=== PATIENT | male | born 1980 | race African-American/Black ===

== ENCOUNTER 2018-03-17 13:28 | Emergency (ER) | payer MEDICAID ==
[~2018-03-17] VITALS: Ht 195.6 cm; Wt 64.0 kg
[~2018-03-17 13:28] MED LIST: OR220 PO
[2018-03-17] MEDS ORDERED: SODIUM CHLORIDE 0.9% 1,000 ML IV ONE (14:21)
[2018-03-17 14:56] LABS: BASOPHILS % 0.2 % (0.0-2.0); EOSINOPHILS % 0.3 % (0.0-5.0); HEMATOCRIT. 26.9 % (42.0-52.0); HEMOGLOBIN. 9.3 g/dL (14.0-18.0); LYMPHOCYTES % 8.1 % (20.0-50.0); MEAN CORPUSCULAR VOLUME 95.4 fL (80.0-94.0); MEAN PLATELET VOLUME 7.2 fl (7.4-10.4); MONOCYTES % 7.2 % (2.0-8.0); NEUTROPHILS % 84.2 % (40.0-76.0); PLATELET 229 x1000/uL (130-400); RED BLOOD CELL COUNT 2.82 mill/uL (4.7-6.1); RED CELL DISTRIBUTION WIDTH 12.8 % (11.6-14.6)
[2018-03-17 15:02] LABS: CHLORIDE 103 mEq/L (98-107)
[2018-03-17 15:05] LABS: INR 1.1; PARTIAL THROMBOPLASTIN TIME 27.6 sec (23.4-31.0); PROTHROMBIN TIME 11.1 sec (9.4-11.6)
[2018-03-17 15:08] LABS: PHOSPHORUS 3.8 mg/dL (2.5-4.9)
[2018-03-17 15:10] LABS: CREATINE KINASE 55 IU/L (39-308)
[2018-03-17] MEDS ORDERED: POTASSIUM CHLORIDE 20MEQ TABLET SR PO ONE (15:30)
[2018-03-17 16:57] VITALS: BP 131/85
== END 2018-03-17 17:02 | disposition home or self-care (01) ==
LOC: ER 15:49
DX: N28.9 Disorder of kidney and ureter, unspecified (principal); E87.6 Hypokalemia; D64.9 Anemia, unspecified; R03.0 Elevated blood-pressure reading, without diagnosis of hypertension; I45.10 Unspecified right bundle-branch block; R94.31 Abnormal electrocardiogram [ECG] [EKG]; F17.210 Nicotine dependence, cigarettes, uncomplicated; Z98.890 Other specified postprocedural states
CPT/HCPCS: 36415; 80053; 82550; 83735; 84100; 84484; 85025; 85610; 85730; 93005; 99285; J7030

== ENCOUNTER 2019-11-13 15:56 | Inpatient (IN) | payer MEDICAID ==
[~2019-11-13] VITALS: Ht 182.9 cm; Wt 52.7 kg
[~2019-11-13 15:56] MED LIST changes: -OR220 PO; +ZINC1CAP2 PO
[2019-11-13] MEDS ORDERED: ETOMIDATE 2MG/ML 10ML VIAL IV ONE ×2 (15:57→16:15)
[2019-11-13] MEDS ORDERED: VECURONIUM BROMIDE 10 MG/VIAL IV ONE (15:57)
[2019-11-13] MEDS ORDERED: SODIUM CHLORIDE 0.9% 10ML VIAL ONE (15:57)
[2019-11-13] MEDS ORDERED: SUCCINYLCHOLINE CHLORIDE 200MG/10ML IV ONE ×2 (15:57→16:15)
[2019-11-13] MEDS ORDERED: DOPAMINE 400MG/250ML PREMIX 250 ML IV ONE ×2 (16:07→16:15)
[2019-11-13] MEDS ORDERED: NOREPINEPHRINE 4MG/250ML PMX 250 ML IV ONE ×3 (16:14→21:47)
[2019-11-13] MEDS ORDERED: NOREPINEPHRINE 4 MG in DEXT 5% WATER 246 ML IV ONE ×2 (16:15→21:45)
[2019-11-13] MEDS ORDERED: SODIUM CHLORIDE 0.9% 1000ML BAG (SEPSIS BOLUS) IV ONE (16:15)
[2019-11-13] MEDS ORDERED: MIDAZOLAM HCL 50 MG in DEXTROSE 5% WATER 40 ML IV ONE (16:15)
[2019-11-13] MEDS ORDERED: PIPERACILLIN/TAZ 3.375G PREMIX 50 ML IV ONE (16:30)
[2019-11-13] MEDS ORDERED: LEVOFLOXACIN 500MG PREMIX 100 ML IV ONE (16:30)
[2019-11-13 16:56] LABS: BASOPHILS % 0.3 % (0.0-2.0); HEMATOCRIT. 22.9 % (42.0-52.0); HEMOGLOBIN. 7.5 g/dL (14.0-18.0); LYMPHOCYTES % 17.7 % (20.0-50.0); MEAN CORPUSCULAR VOLUME 109.8 fL (80.0-94.0); MONOCYTES % 10.4 % (2.0-8.0); NEUTROPHILS % 71.6 % (40.0-76.0); PLATELET 137 x1000/uL (130-400); RED BLOOD CELL COUNT 2.09 mill/uL (4.7-6.1); RED CELL DISTRIBUTION WIDTH 13.8 % (11.6-14.6)
[2019-11-13 16:57] LABS: CHLORIDE 97 mEq/L (98-107)
[2019-11-13 16:59] LABS: INR 1.2; PROTHROMBIN TIME 13.1 sec (9.6-11.0)
[2019-11-13 17:00] LABS: BG BASE EXCESS -30.8 mmol/L (-2.0-2.0); BG CARBOXYHEMOGLOBIN 0.3 % (0.5-1.5); BG DEOXYHEMOGLOBIN 1.7 % (0.0-5.0); BG FRACTION INSPIRED OXYGEN 100; BG HCO3 ACT 3.6 mmol/L (22.0-26.0); BG METHEMOGLOBIN 0.8 % (0.0-1.5); BG OXYGEN SATURATION 98.3 % (92.0-98.5); BG OXYHEMOGLOBIN 97.2 % (94.0-97.0); BG PCO2 28.8 mmHg (35.0-45.0); BG PO2 232.3 mmHg (75.0-100.0); BG SAMPLE SITE RIGHT RADIAL; BG TIDAL VOLUME(mL) 400 mL; BG TOTAL HEMOGLOBIN 8.6 g/dL (12.0-18.0); BG VENT MODE VENT - A/C; BG VENT RATE 16 set
[2019-11-13 17:02] LABS: ETHANOL BLOOD 101 mg/dL
[2019-11-13] MEDS ORDERED: SODIUM BICARBONATE 150 MEQ in DEXTROSE 5% WATER 1,000 ML IV STA (17:04)
[2019-11-13] MEDS ORDERED: SODIUM BICARBONATE 8.4% 1 MEQ/ML 50ML SYR IV ONE (17:15)
[2019-11-13] MEDS ORDERED: MAGNESIUM 2 G PREMIX 50 ML IV ONE (17:30)
[2019-11-13] MEDS ORDERED: POTASSIUM CHLORIDE INJ 40 MEQ in DEXT 5% WATER 250 ML IV ONE (17:30)
[2019-11-13 17:45] LABS: CLARITY URINE CLEAR (CLEAR); COLOR URINE YELLOW (YELLOW); KETONES URINE 3+ (NEGATIVE); LEUKOCYTE ESTERASE URINE NEGATIVE (NEGATIVE); NITRITE URINE NEGATIVE (NEGATIVE); OCCULT BLOOD URINE 1+ (NEGATIVE); PROTEIN URINE 2+ (NEGATIVE)
[2019-11-13 18:01] LABS: *AMPHETAMINES SCREEN URINE NEGATIVE (NEGATIVE); *BARBITURATES SCREEN URINE NEGATIVE (NEGATIVE); *BENZODIAZEPINES SCREEN URINE NEGATIVE (NEGATIVE); *COCAINE SCREEN URINE NEGATIVE (NEGATIVE); METHADONE URINE SCREEN NEGATIVE (NEGATIVE); OPIATES URINE SCREEN NEGATIVE (NEGATIVE)
[2019-11-13 18:02] LABS: CANNABINOID URINE SCREEN PRESUMTIVE POSITIVE (NEGATIVE); PHENCYCLIDINE URINE SCREEN NEGATIVE (NEGATIVE)
[2019-11-13] MEDS ORDERED: SODIUM CHLORIDE 0.9% 1,000 ML IV SCH (18:13)
[2019-11-13] MEDS ORDERED: MAGNESIUM/ALUMINUM HYDROXIDE/SIMETHICONE 30ML UDC PO PRN (18:15)
[2019-11-13] MEDS ORDERED: NA PHOS,M-B/NA PHOS,DI-BA ENEMA 118ML PR PRN (18:15)
[2019-11-13] MEDS ORDERED: CLONIDINE 0.1MG TABLET PO PRN (18:15)
[2019-11-13] MEDS ORDERED: HYDRALAZINE 20MG/ML VIAL IV PRN (18:15)
[2019-11-13] MEDS ORDERED: DIPHENHYDRAMINE 50MG/ML VIAL IV PRN (18:15)
[2019-11-13] MEDS ORDERED: ONDANSETRON HCL 4MG/2ML INJ IV PRN (18:15)
[2019-11-13] MEDS ORDERED: IPRATROPIUM/ALBUTEROL 0.5-3(2.5)MG/3ML NEB NEB SCH (18:15)
[2019-11-13] MEDS ORDERED: ACETAMINOPHEN 325MG TABLET PO PRN (18:15)
[2019-11-13] MEDS ORDERED: IPRATROPIUM/ALBUTEROL 0.5-3(2.5)MG/3ML NEB NEB PRN (18:15)
[2019-11-13] MEDS ORDERED: DOCUSATE SODIUM 100MG CAPSULE PO PRN (18:15)
[2019-11-13] MEDS ORDERED: DEXTROSE 50% WATER 50ML SYRINGE IV PRN (18:15)
[2019-11-13] MEDS ORDERED: LORAZEPAM 2MG/ML CPJ IV PRN (18:15)
[2019-11-13] MEDS ORDERED: PIPERACILLIN/TAZ 3.375G PREMIX 50 ML IV SCH (18:15)
[2019-11-13] MEDS ORDERED: VANCOMYCIN 1 G PREMIX 200 ML IV SCH (18:41)
[2019-11-13] MEDS: DEXT 5%/0.9% NACL 1,000 ML IV SCH (18:44)
[2019-11-13 18:53] LABS: BG BASE EXCESS -20.9 mmol/L (-2.0-2.0); BG CARBOXYHEMOGLOBIN 0.3 % (0.5-1.5); BG DEOXYHEMOGLOBIN 0.6 % (0.0-5.0); BG FRACTION INSPIRED OXYGEN 100; BG HCO3 ACT 7.9 mmol/L (22.0-26.0); BG METHEMOGLOBIN 0.2 % (0.0-1.5); BG OXYGEN SATURATION 99.4 % (92.0-98.5); BG OXYHEMOGLOBIN 98.9 % (94.0-97.0); BG PCO2 28.7 mmHg (35.0-45.0); BG PH 7.056 (7.350-7.450); BG PO2 594.7 mmHg (75.0-100.0); BG SAMPLE SITE RIGHT RADIAL; BG TIDAL VOLUME(mL) 400 mL; BG TOTAL HEMOGLOBIN 8.6 g/dL (12.0-18.0); BG VENT MODE VENT - A/C; BG VENT RATE 24 set
[2019-11-13] MEDS ORDERED: GUAIFENESIN 200MG/10ML SUGAR FREE UDC PO PRN (19:09)
[2019-11-13] MEDS ORDERED: MORPHINE SULFATE 2 MG/ML CPJ (NOT FOR IM USE) IV PRN (19:15)
[2019-11-13] MEDS ORDERED: HYDROCODONE/ACETAMINOPHEN 10/325MG TABLET PO PRN (19:15)
[2019-11-13 20:57] LABS: HEPATITIS B SURFACE ANTIGEN NEGATIVE
[2019-11-13 21:26] LABS: HEPATITIS A AB IGM NEGATIVE (NEGATIVE)
[2019-11-13] MEDS ORDERED: NOREPINEPHRINE 4MG/250ML PMX 250 ML IV NR (22:48)
[2019-11-13] MEDS ORDERED: INSULIN REGULAR (HUMULIN R) 300UNITS/3ML SUBCUT NR (23:00)
[2019-11-13] MEDS ORDERED: INSULIN GLARGINE UD 100 UNITS/ML SYR SUBCUT NR (23:00)
[2019-11-14] VITALS (96 sets, daily range): BP systolic 65–138; BP diastolic 26–87
[2019-11-14] MEDS ORDERED: DOPAMINE 400MG/250ML PREMIX 250 ML IV SCH (00:09)
[2019-11-14] MEDS ORDERED: SODIUM BICARBONATE 8.4% 1 MEQ/ML 50ML SYR IV SCH (00:10)
[2019-11-14] MEDS ORDERED: MIDAZOLAM HCL 100 MG in DEXT 5% WATER 80 ML IV PRN (00:30)
[2019-11-14] MEDS ORDERED: NOREPINEPHRINE 32 MG in DEXT 5% WATER 468 ML IV PRN ×4 (00:30)
[2019-11-14] MEDS ORDERED: FENTANYL CITRATE/PF 500 MCG in SODIUM CHLORIDE 0.9% 40 ML IV PRN (00:30)
[2019-11-14] MEDS: FENTANYL CITRATE/PF 500 MCG in SODIUM CHLORIDE 0.9% 40 ML IV PRN ×2 (01:10→08:39)
[2019-11-14] MEDS: MIDAZOLAM HCL 100 MG in DEXT 5% WATER 80 ML IV PRN ×2 (01:11→17:54)
[2019-11-14 01:31] LABS: CREATINE KINASE MB FRACTION 2.3 ng/mL (0.5-3.6)
[2019-11-14 01:36] LABS: BG BASE EXCESS -12.4 mmol/L (-2.0-2.0); BG CARBOXYHEMOGLOBIN 0.3 % (0.5-1.5); BG DEOXYHEMOGLOBIN 1.5 % (0.0-5.0); BG FRACTION INSPIRED OXYGEN 40; BG HCO3 ACT 11.9 mmol/L (22.0-26.0); BG METHEMOGLOBIN 0.6 % (0.0-1.5); BG OXYGEN SATURATION 98.5 % (92.0-98.5); BG OXYHEMOGLOBIN 97.6 % (94.0-97.0); BG PCO2 22.5 mmHg (35.0-45.0); BG PH 7.343 (7.350-7.450); BG PO2 199.7 mmHg (75.0-100.0); BG SAMPLE SITE RIGHT RADIAL; BG TIDAL VOLUME(mL) 400 mL; BG TOTAL HEMOGLOBIN 7.6 g/dL (12.0-18.0); BG VENT MODE VENT - A/C; BG VENT RATE 30 set
[2019-11-14] MEDS ORDERED: INSULIN REGULAR (HUMULIN R) 300UNITS/3ML SUBCUT SCH (01:43)
[2019-11-14] MEDS ORDERED: DILTIAZEM HCL 125 MG in DEXT 5% WATER 100 ML IV PRN (02:00)
[2019-11-14] MEDS: PIPERACILLIN/TAZOBACTAM 3.375 G in DEXT 5% WATER 100 ML IV SCH ×3 (02:34→18:14)
[2019-11-14] MEDS: SODIUM BICARBONATE 150 MEQ in DEXTROSE 5% WATER 1,000 ML IV SCH ×2 (03:00→10:33)
[2019-11-14] MEDS: PHENYLEPHRINE 40 MG in DEXT 5% WATER 246 ML IV PRN (03:40)
[2019-11-14] MEDS: VANCOMYCIN 1 G PREMIX 200 ML IV SCH ×3 (03:42→19:16)
[2019-11-14] MEDS: IPRATROPIUM/ALBUTEROL 0.5-3(2.5)MG/3ML NEB NEB SCH ×5 (04:43→20:23)
[2019-11-14 05:43] LABS: MEAN CORPUSCULAR HEMOGLOBIN 36.4 pg (28.0-32.0); MEAN CORPUSCULAR VOLUME 104.1 fL (80.0-94.0); MEAN PLATELET VOLUME 7.1 fl (7.4-10.4); PLATELET 68 x1000/uL (130-400); RED BLOOD CELL COUNT 1.91 mill/uL (4.7-6.1); RED CELL DISTRIBUTION WIDTH 13.9 % (11.6-14.6)
[2019-11-14 05:44] LABS: CHLORIDE 101 mEq/L (98-107)
[2019-11-14 05:55] LABS: CREATINE KINASE MB FRACTION 4.7 ng/mL (0.5-3.6)
[2019-11-14 05:56] LABS: HEMATOCRIT. 19.8 % (42.0-52.0); HEMOGLOBIN. 6.9 g/dL (14.0-18.0)
[2019-11-14 05:57] LABS: CREATINE KINASE 106 IU/L (39-308)
[2019-11-14 06:24] LABS: PHOSPHORUS 0.2 mg/dL (2.5-4.9)
[2019-11-14] MEDS ORDERED: POTASSIUM CHLORIDE INJ 60 MEQ in DEXT 5% WATER 250 ML IV ONE (07:45)
[2019-11-14 07:46] LABS: PLATELET ESTIMATE DECREASED
[2019-11-14 08:43] LABS: BG BASE EXCESS -11.2 mmol/L (-2.0-2.0); BG CARBOXYHEMOGLOBIN 0.4 % (0.5-1.5); BG DEOXYHEMOGLOBIN 1.4 % (0.0-5.0); BG FRACTION INSPIRED OXYGEN 40; BG HCO3 ACT 14.1 mmol/L (22.0-26.0); BG METHEMOGLOBIN 0.4 % (0.0-1.5); BG OXYGEN SATURATION 98.6 % (92.0-98.5); BG OXYHEMOGLOBIN 97.8 % (94.0-97.0); BG PCO2 28.9 mmHg (35.0-45.0); BG PH 7.305 (7.350-7.450); BG PO2 165.7 mmHg (75.0-100.0); BG SAMPLE SITE RIGHT RADIAL; BG TIDAL VOLUME(mL) 400 mL; BG TOTAL HEMOGLOBIN 7.7 g/dL (12.0-18.0); BG VENT MODE VENT - A/C; BG VENT RATE 30 set
[2019-11-14 08:57] LABS: T4 FREE 0.81 ng/dL (0.76-1.46)
[2019-11-14] MEDS ORDERED: POTASSIUM PHOS,M-BASIC-D-BASIC 30 MMOL in DEXT 5% WATER 500 ML IV SCH (09:00)
[2019-11-14] MEDS: KCL 20MEQ/100ML PREMIX 100 ML IV SCH ×4 (09:00→13:43)
[2019-11-14] MEDS ORDERED: MAGNESIUM 2 G PREMIX 50 ML IV SCH ×2 (09:00→21:00)
[2019-11-14] MEDS: MULTIVITAMINS,THER W-MINERALS TABLET PO SCH (10:36)
[2019-11-14] MEDS: THIAMINE HCL 100MG TABLET PO SCH (10:37)
[2019-11-14] MEDS: FOLIC ACID 1MG TABLET PO SCH (10:37)
[2019-11-14] MEDS: DEXT 5%/0.9% NACL 1,000 ML IV SCH ×2 (11:19→21:55)
[2019-11-14] MEDS ORDERED: INFLUENZA VIRUS VACCINE(AFLURIA) 0.5ML SYR IM ONE (12:00)
[2019-11-14 13:06] LABS: D-DIMER 2.45 mg/L FEU (<0.50)
[2019-11-14] MEDS: PANTOPRAZOLE SODIUM 40 MG/VIAL IV SCH (13:29)
[2019-11-14 14:20] LABS: FOLIC ACID (FOLATE) SERUM > 20.00 ng/mL (>5.38); VITAMIN B12 SERUM 790 pg/mL (211-911)
[2019-11-14] MEDS ORDERED: DEXTROSE 50% WATER 50ML SYRINGE IV PRN (16:00)
[2019-11-14 18:29] LABS: CREATINE KINASE MB FRACTION 7.3 ng/mL (0.5-3.6)
[2019-11-14] MEDS: BLOOD SUGAR DIAGNOSTIC STRIP TEST SCH (21:55)
[2019-11-14] MEDS: SODIUM CHLORIDE 0.9% INJ 3ML FLUSH IVF SCH (21:56)
[2019-11-14] MEDS: INSULIN LISPRO 100 UNITS/ML SUBCUT SCH (21:59)
[2019-11-14] MEDS ORDERED: POTASSIUM CHLORIDE INJ 60 MEQ in DEXT 5% WATER 500 ML IV SCH (22:00)
[2019-11-14 22:50] LABS: HEMATOCRIT 32.2 % (42.0-52.0); HEMOGLOBIN 11.4 g/dL (14.0-18.0)
[2019-11-14 23:14] LABS: CREATINE KINASE MB FRACTION 5.9 ng/mL (0.5-3.6)
[2019-11-15] VITALS (93 sets, daily range): BP systolic 76–134; BP diastolic 45–78
[2019-11-15] MEDS: IPRATROPIUM/ALBUTEROL 0.5-3(2.5)MG/3ML NEB NEB SCH ×7 (00:19→23:40)
[2019-11-15] MEDS: PIPERACILLIN/TAZOBACTAM 3.375 G in DEXT 5% WATER 100 ML IV SCH ×3 (01:19→17:17)
[2019-11-15] MEDS: FENTANYL CITRATE/PF 500 MCG in SODIUM CHLORIDE 0.9% 40 ML IV PRN ×2 (01:21→16:14)
[2019-11-15] MEDS: BLOOD SUGAR DIAGNOSTIC STRIP TEST SCH ×4 (03:08→21:15)
[2019-11-15] MEDS: VANCOMYCIN 1 G PREMIX 200 ML IV SCH ×3 (03:08→17:57)
[2019-11-15] MEDS: INSULIN LISPRO 100 UNITS/ML SUBCUT SCH ×4 (03:08→21:15)
[2019-11-15 04:26] LABS: HEMATOCRIT 28.8 % (42.0-52.0); HEMOGLOBIN 10.2 g/dL (14.0-18.0)
[2019-11-15 04:28] LABS: CHLORIDE 101 mEq/L (98-107)
[2019-11-15 04:36] LABS: AMYLASE 89 IU/L (25-115)
[2019-11-15 04:40] LABS: CREATINE KINASE 189 IU/L (39-308)
[2019-11-15 04:44] LABS: CREATINE KINASE MB FRACTION 4.3 ng/mL (0.5-3.6)
[2019-11-15 05:08] LABS: HIV SCREEN 4G Non Reactive (Non Reactive)
[2019-11-15] MEDS: SODIUM CHLORIDE 0.9% INJ 3ML FLUSH IVF SCH ×3 (05:25→21:15)
[2019-11-15] MEDS: PHENYLEPHRINE 40 MG in DEXT 5% WATER 246 ML IV PRN ×3 (06:42→21:00)
[2019-11-15] MEDS: MIDAZOLAM HCL 100 MG in DEXT 5% WATER 80 ML IV PRN (06:53)
[2019-11-15] MEDS ORDERED: POTASSIUM CHLORIDE INJ 40 MEQ in DEXT 5% WATER 250 ML IV NR (08:00)
[2019-11-15 08:23] LABS: BG BASE EXCESS -1.4 mmol/L (-2.0-2.0); BG CARBOXYHEMOGLOBIN 0.2 % (0.5-1.5); BG DEOXYHEMOGLOBIN 1.3 % (0.0-5.0); BG FRACTION INSPIRED OXYGEN 35; BG HCO3 ACT 22.7 mmol/L (22.0-26.0); BG METHEMOGLOBIN 0.3 % (0.0-1.5); BG OXYGEN SATURATION 98.7 % (92.0-98.5); BG OXYHEMOGLOBIN 98.2 % (94.0-97.0); BG PH 7.418 (7.350-7.450); BG SAMPLE SITE RIGHT RADIAL; BG TIDAL VOLUME(mL) 450 mL; BG TOTAL HEMOGLOBIN 10.8 g/dL (12.0-18.0); BG VENT MODE VENT - A/C; BG VENT RATE 30 set
[2019-11-15] MEDS: MULTIVITAMINS,THER W-MINERALS TABLET PO SCH (08:45)
[2019-11-15] MEDS: PANTOPRAZOLE SODIUM 40 MG/VIAL IV SCH (08:45)
[2019-11-15] MEDS: THIAMINE HCL 100MG TABLET PO SCH (08:45)
[2019-11-15] MEDS: FOLIC ACID 1MG TABLET PO SCH (08:45)
[2019-11-15] MEDS: LACTULOSE 20G/30ML UDC PO SCH ×2 (09:00→17:00)
[2019-11-15 09:04] LABS: PHOSPHORUS 0.6 mg/dL (2.5-4.9)
[2019-11-15] MEDS: DEXT 5%/0.9% NACL 1,000 ML IV SCH ×2 (09:57→19:51)
[2019-11-15] MEDS ORDERED: POTASSIUM PHOS,M-BASIC-D-BASIC 20 MMOL in DEXT 5% WATER 243.3333 ML IV NR (11:00)
[2019-11-15] MEDS ORDERED: KCL 20MEQ/100ML PREMIX 100 ML IV NR (12:00)
[2019-11-15 17:07] LABS: HEMATOCRIT 31.3 % (42.0-52.0); HEMOGLOBIN 11.1 g/dL (14.0-18.0)
[2019-11-15 17:17] LABS: PHOSPHORUS 1.9 mg/dL (2.5-4.9)
[2019-11-15] MEDS ORDERED: POTASSIUM CHLORIDE INJ 40 MEQ in DEXT 5% WATER 250 ML IV ONE (19:30)
[2019-11-16] VITALS (99 sets, daily range): BP systolic 71–128; BP diastolic 24–80
[2019-11-16] MEDS: PIPERACILLIN/TAZOBACTAM 3.375 G in DEXT 5% WATER 100 ML IV SCH ×3 (01:08→19:07)
[2019-11-16] MEDS: MIDAZOLAM HCL 100 MG in DEXT 5% WATER 80 ML IV PRN (01:10)
[2019-11-16] MEDS: VANCOMYCIN 1 G PREMIX 200 ML IV SCH (02:11)
[2019-11-16] MEDS: IPRATROPIUM/ALBUTEROL 0.5-3(2.5)MG/3ML NEB NEB SCH ×5 (03:26→20:19)
[2019-11-16] MEDS: DEXT 5%/0.9% NACL 1,000 ML IV SCH (03:43)
[2019-11-16] MEDS: BLOOD SUGAR DIAGNOSTIC STRIP TEST SCH ×4 (04:00→22:27)
[2019-11-16] MEDS: INSULIN LISPRO 100 UNITS/ML SUBCUT SCH ×4 (04:00→22:00)
[2019-11-16] MEDS: SODIUM CHLORIDE 0.9% INJ 3ML FLUSH IVF SCH ×3 (05:08→21:28)
[2019-11-16 07:03] LABS: CHLORIDE 109 mEq/L (98-107)
[2019-11-16] MEDS: PHENYLEPHRINE 40 MG in DEXT 5% WATER 246 ML IV PRN ×3 (07:15→15:50)
[2019-11-16 07:45] LABS: BASOPHILS % 1.2 % (0.0-2.0); EOSINOPHILS % 1.4 % (0.0-5.0); HEMATOCRIT. 26.7 % (42.0-52.0); HEMOGLOBIN. 9.6 g/dL (14.0-18.0); LYMPHOCYTES % 14.8 % (20.0-50.0); MEAN CORPUSCULAR VOLUME 95.2 fL (80.0-94.0); MEAN PLATELET VOLUME 8.2 fl (7.4-10.4); MONOCYTES % 8.5 % (2.0-8.0); NEUTROPHILS % 74.1 % (40.0-76.0); RED BLOOD CELL COUNT 2.81 mill/uL (4.7-6.1); RED CELL DISTRIBUTION WIDTH 17.7 % (11.6-14.6)
[2019-11-16 07:55] LABS: PLATELET 32 x1000/uL (130-400)
[2019-11-16] MEDS: FENTANYL CITRATE/PF 500 MCG in SODIUM CHLORIDE 0.9% 40 ML IV PRN (08:02)
[2019-11-16] MEDS: PANTOPRAZOLE SODIUM 40 MG/VIAL IV SCH (08:13)
[2019-11-16] MEDS: THIAMINE HCL 100MG TABLET PO SCH (08:14)
[2019-11-16] MEDS: MULTIVITAMINS,THER W-MINERALS TABLET PO SCH (08:14)
[2019-11-16] MEDS: FOLIC ACID 1MG TABLET PO SCH (08:14)
[2019-11-16] MEDS: LACTULOSE 20G/30ML UDC PO SCH ×2 (08:17→16:39)
[2019-11-16 09:12] LABS: BG BASE EXCESS -4.8 mmol/L (-2.0-2.0); BG CARBOXYHEMOGLOBIN 0.1 % (0.5-1.5); BG DEOXYHEMOGLOBIN 1.8 % (0.0-5.0); BG FRACTION INSPIRED OXYGEN 35; BG HCO3 ACT 21.1 mmol/L (22.0-26.0); BG METHEMOGLOBIN 0.4 % (0.0-1.5); BG OXYGEN SATURATION 98.2 % (92.0-98.5); BG OXYHEMOGLOBIN 97.7 % (94.0-97.0); BG PCO2 42.4 mmHg (35.0-45.0); BG PH 7.315 (7.350-7.450); BG PO2 187.6 mmHg (75.0-100.0); BG SAMPLE SITE RIGHT RADIAL; BG TIDAL VOLUME(mL) 450 mL; BG TOTAL HEMOGLOBIN 10.1 g/dL (12.0-18.0); BG VENT MODE VENT - A/C; BG VENT RATE 24 set
[2019-11-16] MEDS ORDERED: KCL 20MEQ/100ML PREMIX 100 ML IV NR (10:30)
[2019-11-16 10:37] LABS: PLATELET ESTIMATE MARKEDLY DECREASED
[2019-11-16] MEDS ORDERED: MAGNESIUM 2 G PREMIX 50 ML IV NR (11:00)
[2019-11-16] MEDS: DEXT 5%/0.9% NACL KCL 20MEQ/L 1,000 ML IV SCH ×2 (11:32→23:46)
[2019-11-16] MEDS ORDERED: POTASSIUM PHOS,M-BASIC-D-BASIC 20 MMOL in DEXT 5% WATER 243.3333 ML IV NR (12:00)
[2019-11-17] VITALS (94 sets, daily range): BP systolic 82–145; BP diastolic 32–93
[2019-11-17] MEDS: PHENYLEPHRINE 40 MG in DEXT 5% WATER 246 ML IV PRN ×2 (00:19→09:09)
[2019-11-17] MEDS: PIPERACILLIN/TAZOBACTAM 3.375 G in DEXT 5% WATER 100 ML IV SCH ×3 (01:08→17:20)
[2019-11-17] MEDS: MIDAZOLAM HCL 100 MG in DEXT 5% WATER 80 ML IV PRN (01:09)
[2019-11-17] MEDS: INSULIN LISPRO 100 UNITS/ML SUBCUT SCH ×4 (04:00→23:15)
[2019-11-17] MEDS: BLOOD SUGAR DIAGNOSTIC STRIP TEST SCH ×4 (04:13→23:16)
[2019-11-17 05:00] LABS: BASOPHILS % 0.7 % (0.0-2.0); EOSINOPHILS % 1.6 % (0.0-5.0); HEMATOCRIT. 28.3 % (42.0-52.0); HEMOGLOBIN. 9.9 g/dL (14.0-18.0); LYMPHOCYTES % 10.9 % (20.0-50.0); MEAN CORPUSCULAR HEMOGLOBIN 34.2 pg (28.0-32.0); MEAN CORPUSCULAR VOLUME 97.4 fL (80.0-94.0); MEAN PLATELET VOLUME 7.7 fl (7.4-10.4); MONOCYTES % 7.5 % (2.0-8.0); NEUTROPHILS % 79.3 % (40.0-76.0); PLATELET 81 x1000/uL (130-400); RED BLOOD CELL COUNT 2.91 mill/uL (4.7-6.1); RED CELL DISTRIBUTION WIDTH 18.2 % (11.6-14.6)
[2019-11-17 05:01] LABS: CHLORIDE 109 mEq/L (98-107)
[2019-11-17 05:09] LABS: PHOSPHORUS 2.6 mg/dL (2.5-4.9)
[2019-11-17] MEDS: SODIUM CHLORIDE 0.9% INJ 3ML FLUSH IVF SCH ×3 (05:37→21:14)
[2019-11-17] MEDS ORDERED: PHENYLEPHRINE 80 MG in DEXT 5% WATER 492 ML IV PRN (08:00)
[2019-11-17 08:01] LABS: BG BASE EXCESS -5.7 mmol/L (-2.0-2.0); BG CARBOXYHEMOGLOBIN 0.3 % (0.5-1.5); BG DEOXYHEMOGLOBIN 1.2 % (0.0-5.0); BG FRACTION INSPIRED OXYGEN 35; BG HCO3 ACT 19.2 mmol/L (22.0-26.0); BG METHEMOGLOBIN 0.1 % (0.0-1.5); BG OXYGEN SATURATION 98.8 % (92.0-98.5); BG OXYHEMOGLOBIN 98.4 % (94.0-97.0); BG PCO2 35.4 mmHg (35.0-45.0); BG PH 7.353 (7.350-7.450); BG PO2 173.3 mmHg (75.0-100.0); BG SAMPLE SITE RIGHT RADIAL; BG TIDAL VOLUME(mL) 450 mL; BG TOTAL HEMOGLOBIN 8.9 g/dL (12.0-18.0); BG VENT MODE VENT - A/C; BG VENT RATE 24 set
[2019-11-17] MEDS: LACTULOSE 20G/30ML UDC PO SCH ×2 (08:09→17:20)
[2019-11-17] MEDS: FOLIC ACID 1MG TABLET PO SCH (08:10)
[2019-11-17] MEDS: MULTIVITAMINS,THER W-MINERALS TABLET PO SCH (08:10)
[2019-11-17] MEDS: THIAMINE HCL 100MG TABLET PO SCH (08:10)
[2019-11-17] MEDS: PANTOPRAZOLE SODIUM 40 MG/VIAL IV SCH (08:10)
[2019-11-17] MEDS: FENTANYL CITRATE/PF 500 MCG in SODIUM CHLORIDE 0.9% 40 ML IV PRN (08:44)
[2019-11-17] MEDS: IPRATROPIUM/ALBUTEROL 0.5-3(2.5)MG/3ML NEB NEB SCH ×5 (08:58→23:49)
[2019-11-17 12:02] LABS: BG BASE EXCESS -5.9 mmol/L (-2.0-2.0); BG CARBOXYHEMOGLOBIN 0.3 % (0.5-1.5); BG DEOXYHEMOGLOBIN 1.3 % (0.0-5.0); BG FRACTION INSPIRED OXYGEN 35; BG HCO3 ACT 18.8 mmol/L (22.0-26.0); BG METHEMOGLOBIN 0.2 % (0.0-1.5); BG OXYGEN SATURATION 98.7 % (92.0-98.5); BG OXYHEMOGLOBIN 98.2 % (94.0-97.0); BG PH 7.361 (7.350-7.450); BG PO2 179.2 mmHg (75.0-100.0); BG PRESSURE SUPPORT 8; BG SAMPLE SITE RIGHT RADIAL; BG TOTAL HEMOGLOBIN 9.4 g/dL (12.0-18.0); BG VENT MODE VENT - CPAP
[2019-11-17] MEDS: DEXT 5%/0.9% NACL KCL 20MEQ/L 1,000 ML IV SCH (12:50)
[2019-11-17 15:57] LABS: BG BASE EXCESS -3.1 mmol/L (-2.0-2.0); BG BILEVEL POS AIRWAY PRESSURE 15/5; BG CARBOXYHEMOGLOBIN 0.3 % (0.5-1.5); BG DEOXYHEMOGLOBIN 8.6 % (0.0-5.0); BG FRACTION INSPIRED OXYGEN 50; BG HCO3 ACT 22.5 mmol/L (22.0-26.0); BG METHEMOGLOBIN 0.1 % (0.0-1.5); BG OXYGEN SATURATION 91.4 % (92.0-98.5); BG PH 7.337 (7.350-7.450); BG PO2 63.7 mmHg (75.0-100.0); BG SAMPLE SITE RIGHT RADIAL; BG TOTAL HEMOGLOBIN 9.1 g/dL (12.0-18.0); BG VENT MODE MASK - BIPAP
[2019-11-17] MEDS ORDERED: VANCOMYCIN 1 G PREMIX 200 ML IV SCH (18:00)
[2019-11-18] VITALS (60 sets, daily range): BP systolic 73–160; BP diastolic 38–80
[2019-11-18] MEDS: PIPERACILLIN/TAZOBACTAM 3.375 G in DEXT 5% WATER 100 ML IV SCH ×2 (03:07→09:13)
[2019-11-18] MEDS: IPRATROPIUM/ALBUTEROL 0.5-3(2.5)MG/3ML NEB NEB SCH ×5 (04:25→20:33)
[2019-11-18] MEDS: SODIUM CHLORIDE 0.9% INJ 3ML FLUSH IVF SCH ×3 (05:17→22:00)
[2019-11-18] MEDS: BLOOD SUGAR DIAGNOSTIC STRIP TEST SCH ×4 (05:17→23:37)
[2019-11-18] MEDS: INSULIN LISPRO 100 UNITS/ML SUBCUT SCH ×4 (05:18→23:37)
[2019-11-18] MEDS: DEXT 5%/0.9% NACL KCL 20MEQ/L 1,000 ML IV SCH (06:12)
[2019-11-18 06:44] LABS: HEMATOCRIT. 23.7 % (42.0-52.0); HEMOGLOBIN. 8.2 g/dL (14.0-18.0); MEAN CORPUSCULAR HEMOGLOBIN 33.6 pg (28.0-32.0); MEAN CORPUSCULAR VOLUME 96.9 fL (80.0-94.0); MEAN PLATELET VOLUME 8.2 fl (7.4-10.4); RED BLOOD CELL COUNT 2.44 mill/uL (4.7-6.1); RED CELL DISTRIBUTION WIDTH 18.2 % (11.6-14.6)
[2019-11-18 06:56] LABS: CHLORIDE 108 mEq/L (98-107)
[2019-11-18 07:05] LABS: PHOSPHORUS 2.1 mg/dL (2.5-4.9)
[2019-11-18 08:24] LABS: PLATELET ESTIMATE MARKEDLY DECREASED
[2019-11-18 08:26] LABS: PLATELET 47 x1000/uL (130-400)
[2019-11-18] MEDS: PANTOPRAZOLE SODIUM 40 MG/VIAL IV SCH (09:13)
[2019-11-18] MEDS: LACTULOSE 20G/30ML UDC PO SCH ×2 (09:14→17:27)
[2019-11-18] MEDS: FOLIC ACID 1MG TABLET PO SCH (09:14)
[2019-11-18] MEDS ORDERED: SODIUM CHLORIDE 0.9% 500 ML IV SCH (09:15)
[2019-11-18] MEDS: THIAMINE HCL 100MG TABLET PO SCH (09:17)
[2019-11-18] MEDS: MULTIVITAMINS,THER W-MINERALS TABLET PO SCH (09:17)
[2019-11-18] MEDS ORDERED: MAGNESIUM 2 G PREMIX 50 ML IV SCH (10:00)
[2019-11-18] MEDS ORDERED: SODIUM PHOS,M-BASIC-D-BASIC 20 MM in DEXT 5% WATER 250 ML IV SCH (10:00)
[2019-11-18] MEDS: CEFTRIAXONE 1 G PREMIX 50 ML IV SCH (13:40)
[2019-11-19] VITALS (12 sets, daily range): BP systolic 90–112; BP diastolic 26–67
[2019-11-19] MEDS: IPRATROPIUM/ALBUTEROL 0.5-3(2.5)MG/3ML NEB NEB SCH ×5 (00:06→21:15)
[2019-11-19] MEDS: INSULIN LISPRO 100 UNITS/ML SUBCUT SCH ×3 (06:00→17:15)
[2019-11-19] MEDS: BLOOD SUGAR DIAGNOSTIC STRIP TEST SCH ×3 (06:11→17:15)
[2019-11-19] MEDS: SODIUM CHLORIDE 0.9% INJ 3ML FLUSH IVF SCH ×3 (06:54→22:02)
[2019-11-19] MEDS: LACTULOSE 20G/30ML UDC PO SCH ×2 (09:00→17:00)
[2019-11-19] MEDS: MULTIVITAMINS,THER W-MINERALS TABLET PO SCH (09:02)
[2019-11-19] MEDS: PANTOPRAZOLE SODIUM 40 MG/VIAL IV SCH (09:03)
[2019-11-19] MEDS: THIAMINE HCL 100MG TABLET PO SCH (09:03)
[2019-11-19] MEDS: FOLIC ACID 1MG TABLET PO SCH (09:03)
[2019-11-19 09:58] LABS: HEMATOCRIT. 23.7 % (42.0-52.0); HEMOGLOBIN. 8.3 g/dL (14.0-18.0); MEAN CORPUSCULAR HEMOGLOBIN 33.9 pg (28.0-32.0); MEAN CORPUSCULAR VOLUME 96.6 fL (80.0-94.0); MEAN PLATELET VOLUME 8.8 fl (7.4-10.4); RED BLOOD CELL COUNT 2.45 mill/uL (4.7-6.1)
[2019-11-19 10:48] LABS: PLATELET 49 x1000/uL (130-400)
[2019-11-19 11:14] LABS: CHLORIDE 102 mEq/L (98-107)
[2019-11-19 11:46] LABS: PLATELET ESTIMATE MARKEDLY DECREASED
[2019-11-19 11:52] LABS: CREATINE KINASE 193 IU/L (39-308)
[2019-11-19] MEDS: CEFTRIAXONE 1 G PREMIX 50 ML IV SCH (13:29)
[2019-11-20] VITALS (11 sets, daily range): BP systolic 96–130; BP diastolic 21–82
[2019-11-20] MEDS: BLOOD SUGAR DIAGNOSTIC STRIP TEST SCH ×4 (00:05→17:45)
[2019-11-20] MEDS: IPRATROPIUM/ALBUTEROL 0.5-3(2.5)MG/3ML NEB NEB SCH ×4 (02:01→21:06)
[2019-11-20 05:54] LABS: HEMATOCRIT. 22.7 % (42.0-52.0); MEAN CORPUSCULAR HEMOGLOBIN 33.5 pg (28.0-32.0); MEAN CORPUSCULAR VOLUME 95.7 fL (80.0-94.0); MEAN PLATELET VOLUME 8.6 fl (7.4-10.4); PLATELET 74 x1000/uL (130-400); RED BLOOD CELL COUNT 2.38 mill/uL (4.7-6.1); RED CELL DISTRIBUTION WIDTH 17.4 % (11.6-14.6)
[2019-11-20] MEDS: INSULIN LISPRO 100 UNITS/ML SUBCUT SCH ×4 (06:00→17:45)
[2019-11-20] MEDS: SODIUM CHLORIDE 0.9% INJ 3ML FLUSH IVF SCH ×2 (06:04→14:07)
[2019-11-20 06:19] LABS: CHLORIDE 99 mEq/L (98-107)
[2019-11-20] MEDS: PANTOPRAZOLE SODIUM 40 MG/VIAL IV SCH (08:23)
[2019-11-20] MEDS: MULTIVITAMINS,THER W-MINERALS TABLET PO SCH (08:23)
[2019-11-20] MEDS: LACTULOSE 20G/30ML UDC PO SCH (08:23)
[2019-11-20] MEDS: THIAMINE HCL 100MG TABLET PO SCH (08:24)
[2019-11-20] MEDS: FOLIC ACID 1MG TABLET PO SCH (08:24)
[2019-11-20 11:18] LABS: PLATELET ESTIMATE DECREASED
[2019-11-20] MEDS: CEFTRIAXONE 1 G PREMIX 50 ML IV SCH (14:34)
[2019-11-21] VITALS (12 sets, daily range): BP systolic 86–117; BP diastolic 30–74
[2019-11-21] MEDS: IPRATROPIUM/ALBUTEROL 0.5-3(2.5)MG/3ML NEB NEB SCH ×2 (00:49→04:42)
[2019-11-21] MEDS: BLOOD SUGAR DIAGNOSTIC STRIP TEST SCH ×4 (00:54→17:35)
[2019-11-21] MEDS: INSULIN LISPRO 100 UNITS/ML SUBCUT SCH ×4 (06:00→17:35)
[2019-11-21] MEDS: SODIUM CHLORIDE 0.9% INJ 3ML FLUSH IVF SCH ×3 (06:09→21:27)
[2019-11-21 06:49] LABS: BASOPHILS % 0.4 % (0.0-2.0); EOSINOPHILS % 0.9 % (0.0-5.0); HEMATOCRIT. 24.6 % (42.0-52.0); HEMOGLOBIN. 8.5 g/dL (14.0-18.0); LYMPHOCYTES % 23.9 % (20.0-50.0); MEAN CORPUSCULAR HEMOGLOBIN 33.4 pg (28.0-32.0); MEAN CORPUSCULAR VOLUME 97.2 fL (80.0-94.0); MEAN PLATELET VOLUME 8.4 fl (7.4-10.4); MONOCYTES % 14.5 % (2.0-8.0); NEUTROPHILS % 60.3 % (40.0-76.0); PLATELET 107 x1000/uL (130-400); RED BLOOD CELL COUNT 2.53 mill/uL (4.7-6.1); RED CELL DISTRIBUTION WIDTH 17.6 % (11.6-14.6)
[2019-11-21 07:14] LABS: CHLORIDE 95 mEq/L (98-107)
[2019-11-21] MEDS: FOLIC ACID 1MG TABLET PO SCH (08:15)
[2019-11-21] MEDS: MULTIVITAMINS,THER W-MINERALS TABLET PO SCH (08:15)
[2019-11-21] MEDS: LACTULOSE 20G/30ML UDC PO SCH (08:16)
[2019-11-21] MEDS: PANTOPRAZOLE SODIUM 40 MG/VIAL IV SCH (08:16)
[2019-11-21] MEDS: THIAMINE HCL 100MG TABLET PO SCH (08:16)
[2019-11-21] MEDS: SODIUM CHLORIDE 0.9% 1,000 ML IV SCH (11:50)
[2019-11-21] MEDS: CEFTRIAXONE 1 G PREMIX 50 ML IV SCH (13:00)
[2019-11-21 16:58] LABS: HEMATOCRIT 24.4 % (42.0-52.0); HEMOGLOBIN 8.5 g/dL (14.0-18.0); MEAN CORPUSCULAR HEMOGLOBIN 33.5 pg (28.0-32.0); MEAN CORPUSCULAR VOLUME 96.5 fL (80.0-94.0); PLATELET 130 x1000/uL (130-400); RED BLOOD CELL COUNT 2.53 mill/uL (4.7-6.1); RED CELL DISTRIBUTION WIDTH 17.7 % (11.6-14.6)
[2019-11-21] MEDS ORDERED: LORAZEPAM 2MG/ML CPJ IV PRN (18:15)
[2019-11-21] MEDS: CHLORDIAZEPOXIDE 25MG CAPSULE PO SCH (21:34)
[2019-11-22] VITALS (9 sets, daily range): BP systolic 84–139; BP diastolic 42–77
[2019-11-22] MEDS: BLOOD SUGAR DIAGNOSTIC STRIP TEST SCH ×4 (00:45→16:12)
[2019-11-22] MEDS: SODIUM CHLORIDE 0.9% INJ 3ML FLUSH IVF SCH ×2 (05:03→14:00)
[2019-11-22] MEDS: CHLORDIAZEPOXIDE 25MG CAPSULE PO SCH ×2 (05:03→14:00)
[2019-11-22] MEDS: INSULIN LISPRO 100 UNITS/ML SUBCUT SCH ×4 (06:00→16:12)
[2019-11-22 07:01] LABS: BASOPHILS % 0.3 % (0.0-2.0); EOSINOPHILS % 0.9 % (0.0-5.0); LYMPHOCYTES % 24.4 % (20.0-50.0); MEAN CORPUSCULAR HEMOGLOBIN 33.1 pg (28.0-32.0); MEAN CORPUSCULAR VOLUME 96.4 fL (80.0-94.0); MEAN PLATELET VOLUME 8.7 fl (7.4-10.4); MONOCYTES % 13.6 % (2.0-8.0); NEUTROPHILS % 60.8 % (40.0-76.0); PLATELET 125 x1000/uL (130-400); RED BLOOD CELL COUNT 2.11 mill/uL (4.7-6.1); RED CELL DISTRIBUTION WIDTH 17.8 % (11.6-14.6)
[2019-11-22] MEDS: SODIUM CHLORIDE 0.9% 1,000 ML IV SCH (07:15)
[2019-11-22 07:34] LABS: CHLORIDE 99 mEq/L (98-107)
[2019-11-22 07:55] LABS: HEMATOCRIT. 20.4 % (42.0-52.0)
[2019-11-22] MEDS: LACTULOSE 20G/30ML UDC PO SCH (08:19)
[2019-11-22] MEDS: THIAMINE HCL 100MG TABLET PO SCH (08:44)
[2019-11-22] MEDS: FOLIC ACID 1MG TABLET PO SCH (08:46)
[2019-11-22] MEDS: MULTIVITAMINS,THER W-MINERALS TABLET PO SCH (08:46)
[2019-11-22] MEDS: PANTOPRAZOLE SODIUM 40 MG/VIAL IV SCH (08:47)
[2019-11-22] MEDS ORDERED: PANTOPRAZOLE SODIUM 40 MG/VIAL IV SCH (12:30)
[2019-11-22] MEDS: CEFTRIAXONE 1 G PREMIX 50 ML IV SCH (12:35)
[2019-11-22] MEDS ORDERED: LORAZEPAM 2MG/ML CPJ IV PRN (16:15)
[2019-11-22] MEDS ORDERED: LORAZEPAM 2MG/ML CPJ IM PRN (16:30)
[2019-11-23] MEDS ORDERED: SORBITOL 70% SOLN 30ML PO NR ×2 (16:00→20:00)
[2019-11-24] MEDS ORDERED: NA PHOS,M-B/NA PHOS,DI-BA ENEMA 118ML PR NR (08:00)
== END 2019-11-22 17:10 | disposition home or self-care (01) | DRG 720 ==
LOC: ER 15:56 → CVICU 17:36 → EDBEDREQTM 17:39 → EDBEDREQ 17:39 → ENRESERV 22:51 → 3WST 11-18 16:28
PROVIDERS: ADMIT Internal Medicine; ATTEND Internal Medicine
PROC: 5A1955Z Respiratory Ventilation, Greater than 96 Consecutive Hours (ICD-10-PCS; principal; 2019-11-13)
PROC: 0BH17EZ Insertion of Endotracheal Airway into Trachea, Via Natural or Artificial Opening (ICD-10-PCS; 2019-11-13)
PROC: 30233N1 Transfusion of Nonautologous Red Blood Cells into Peripheral Vein, Percutaneous Approach (ICD-10-PCS; 2019-11-13)
PROC: 30233R1 Transfusion of Nonautologous Platelets into Peripheral Vein, Percutaneous Approach (ICD-10-PCS; 2019-11-13)
PROC: 06HN33Z Insertion of Infusion Device into Left Femoral Vein, Percutaneous Approach (ICD-10-PCS; 2019-11-13)
PROC: B54CZZA Ultrasonography of Left Lower Extremity Veins, Guidance (ICD-10-PCS; 2019-11-13)
PROC: 5A09357 Assistance with Respiratory Ventilation, Less than 24 Consecutive Hours, Continuous Positive Airway Pressure (ICD-10-PCS; 2019-11-17)
DX: A41.9 Sepsis, unspecified organism (principal); J96.00 Acute respiratory failure, unspecified whether with hypoxia or hypercapnia; R65.21 Severe sepsis with septic shock; J69.0 Pneumonitis due to inhalation of food and vomit; G93.41 Metabolic encephalopathy; K66.1 Hemoperitoneum; E43 Unspecified severe protein-calorie malnutrition; E87.2 Acidosis; K85.90 Acute pancreatitis without necrosis or infection, unspecified; E83.39 Other disorders of phosphorus metabolism; D62 Acute posthemorrhagic anemia; E87.6 Hypokalemia; E83.42 Hypomagnesemia; K70.0 Alcoholic fatty liver; D69.6 Thrombocytopenia, unspecified
CPT/HCPCS: 36415; 36600; 71045; 71250; 74176; 76700; 80048; 80053; 80061; 80076; 80202; 80305; 80307; 80320; 80329; 81003; 82088; 82140; 82150; 82270; 82375; 82550; 82553; 82570; 82607; 82728; 82746; 82805; 82962; 83036; 83540; 83550; 83605; 83735; 83880; 83930; 83935; 84100; 84132; 84133; 84134; 84145; 84156; 84300; 84439; 84443; 84484; 85014; 85018; 85025; 85027; 85049; 85362; 85379; 85384; 86022; 86705; 86709; 86803; 86850; 86900; 86920; 87070; 87340; 87389; 87804; 92610; 93005; 93306; 93970; 94002; 94003; 94640; 94660; 97116; 97162; 97530; 99291; C9113; J0330; J0360; J0696; J1265; J1815; J1956; J2250; J2370; J2405; J2543; J3010; J3370; J3475; J3480; J3490; J7030; J7060; J7070; P9016; P9034; G0480